=== PATIENT | male | born 1995 | race Two or more races ===

== ENCOUNTER 2021-04-09 15:47 | Emergency (ER) | payer OTHER ==
[~2021-04-09] VITALS: Ht 167.6 cm; Wt 81.8 kg
[2021-04-09 16:05] VITALS: BP 130/65
[2021-04-09] MEDS ORDERED: LIDOCAINE 2% Multi-Dose 20 ML VIAL. IJ ONE (16:15)
--- NOTE | 2021-04-09 16:27 | PHYS DOC ---
Past Medical History Past Medical History: No Pertinent History Past Surgical History: No Surgical History Smoking Status: Never Smoker Alcohol Use: None Drug Use: None General Adult EDM: Chief Complaint: LACERATION/AVULSION HPI: HPI: Patient is a 25 year old male who presents with an injury to the left first digit in which there is a partial-thickness laceration of the thumbnail that occurred at 13:15 today (04/09). 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 He said there was a significant amount of blood and he is in 7 out of 10 pain. He denies pain or injury to any other part of his hand. Patient is [place], and has bilingual family members that assisted with portions of the history. Review of Systems: Review of Systems: Constitutional: Denies fever or chills. [] Respiratory: Denies cough or shortness of breath. [] Cardiovascular: Denies chest pain or edema. [] Musculoskeletal: See HPI Integument: Denies rash. [] Neurologic: Denies headache, focal weakness or sensory changes. [] Heart Score: C/O Chest Pain: No Risk Factors: Risk Factors: DM, Current or recent (<one month) smoker, HTN, HLP, family history of CAD, obesity. Risk Scores: Score 0 - 3: 2.5% MACE over next 6 weeks - Discharge Home Score 4 - 6: 20.3% MACE over next 6 weeks - Admit for Clinical Observation Score 7 - 10: 72.7% MACE over next 6 weeks - Early Invasive Strategies Allergies: Allergies: Allergies Coded Allergies Type Severity Reaction Last Updated Verified No Known Drug Allergies 04/09/21 No Physical Exam: PE: Constitutional: Well developed, well nourished, no acute distress, non-toxic appearance. [] HENT: Normocephalic, atraumatic, bilateral external ears normal, nose normal. [] Eyes: Conjunctiva normal, no discharge. [] Cardiovascular:Heart rate regular rhythm, no murmur [] Lungs & Thorax: Bilateral breath sounds clear to auscultation [] Skin: Warm, dry, no erythema, no rash. [] Extremities: Left first digit -dried blood around the fingernail is present. There is a partial-thickness laceration to the distal fingernail. Small avulsion wound is present to the skin medial to the fingernail. There is tenderness to palpation starting at the interphalangeal joint. Full range of motion. Neurovascular intact. Other extremities no tenderness, no cyanosis, no clubbing, ROM intact, no edema. [] Neurologic: Alert and oriented X 3, normal motor function, normal sensory function, no focal deficits noted. [] Current Patient Data: Vital Signs: Vital Signs Date Time Temp Pulse Resp B/P (MAP) Pulse Ox O2 Delivery O2 Flow Rate FiO2 04/09/21 16:05 97.8 79 16 130/65 99 Room Air 97.8 EKG: EKG: [] Radiology/Procedures: Radiology/Procedures: PROCEDURE: HAND LEFT 3V Site ID: [id number] EXAMINATION: XR HAND_LEFT 3 VIEWS. HISTORY: 25 years Male Reason: Trauma to first digit / COMPARISON: None. FINDINGS: No fracture, dislocation or radiopaque foreign body. The joint spaces and articular surfaces appear unremarkable. IMPRESSION: Unremarkable exam. Electronically signed by: Rufino Amaral MD (04/09/2021 4:52 PM) [id number] Course & Med Decision Making: Course & Med Decision Making Pertinent Labs and Imaging studies reviewed. (See chart for details) Patient was bleeding upon arrival to the emergency department. Due to the nature of injury, x-rays were ordered to rule out fracture of the distal phalanx of the first digit of the left hand. After digital block, the wounds were cl eansed with normal saline and Dermabond and Steri-Strips were applied to the wound. Dragon Disclaimer: Dragforeign Disclaimer: This electronic medical record was generated, in whole or in part, using a voice recognition dictation system. Departure Departure Impression: Primary Impression: Laceration of finger with damage to nail Disposition: HOME / SELF CARE / HOMELESS Condition: STABLE Referrals: UNKNOWN PCP NAME (PCP) Patient Instructions: Nail Bed Injury, [id number] Additional Instructions: Do not submerge the affected hand in water. The Dermabond will come off on its own. Steri-Strips may be reapplied as needed. Laceration Repair Lac Repair Indication: Laceration to the first digit of the left hand Procedure: The patient was placed in the appropriate position and anesthesia around the laceration was a digital block with 2.5 mL 2% lidocaine plain. The area was then cleansed with normal saline. The laceration was closed with Dermabond. The wound area was then dressed with Steri-Strip. Total repaired wound length: 2 cm. Other Items: The patient tolerated the procedure well. Complications: No complications. DAVEY LOMELI Apr 09, 2021 16:27
--- NOTE | 2021-04-09 16:55 | RAD ---
Site ID: [id number] EXAMINATION: XR HAND_LEFT 3 VIEWS. HISTORY: 25 years Male Reason: Trauma to first digit / COMPARISON: None. FINDINGS: No fracture, dislocation or radiopaque foreign body. The joint spaces and articular surfaces appea r unremarkable. IMPRESSION: Unremarkable exam. Electronically signed by: Rufino Amaral MD (04/09/2021 4:52 PM) [id number]
== END 2021-04-09 17:22 | disposition home or self-care (01) ==
LOC: ER 15:47
DX: S61.012A Laceration without foreign body of left thumb without damage to nail, initial encounter (principal); W26.8XXA Contact with other sharp object(s), not elsewhere classified, initial encounter; Y93.89 Activity, other specified; Y92.89 Other specified places as the place of occurrence of the external cause; Y99.8 Other external cause status
CPT/HCPCS: 12001; 73130; 99283